=== PATIENT | male | born 1950 | race Caucasian/White ===

== ENCOUNTER 2017-03-05 09:13 | Emergency (ER) | payer OTHER ==
[~2017-03-05] VITALS: Ht 180.3 cm; Wt 90.7 kg
[2017-03-05 09:21] VITALS: BP 139/84
== END 2017-03-05 10:46 | disposition home or self-care (01) ==
LOC: ER 09:16
DX: S39.012A Strain of muscle, fascia and tendon of lower back, initial encounter (principal); S49.81XA Other specified injuries of right shoulder and upper arm, initial encounter; I10 Essential (primary) hypertension; E78.00 Pure hypercholesterolemia, unspecified; E11.9 Type 2 diabetes mellitus without complications; Z88.0 Allergy status to penicillin; Z95.2 Presence of prosthetic heart valve; V89.2XXA Person injured in unspecified motor-vehicle accident, traffic, initial encounter; Y93.89 Activity, other specified; Y92.413 State road as the place of occurrence of the external cause; Y99.8 Other external cause status
CPT/HCPCS: 72100; 73030; 99284; A4606; Z7610

== ENCOUNTER 2017-10-23 11:39 | Emergency (ER) | payer MEDICARE, OTHER ==
[~2017-10-23] VITALS: Ht 170.2 cm; Wt 86.2 kg
[2017-10-23 11:56] VITALS: BP 115/74
[2017-10-23] MEDS ORDERED: ONDANSETRON 4 MG TAB.RAPDIS ONE (12:23)
[2017-10-23] MEDS ORDERED: MORPHINE SULFATE INJ 4 MG/ML DISP.SYRIN ONE (12:23)
[2017-10-23] MEDS ORDERED: ONDANSETRON 4 MG TAB.RAPDIS SL ONE (12:30)
[2017-10-23] MEDS ORDERED: MORPHINE SULFATE INJ 2 MG/ML DISP.SYRIN IM ONE (12:30)
== END 2017-10-23 13:48 | disposition home or self-care (01) ==
LOC: ER 11:49
DX: M25.511 Pain in right shoulder (principal); I10 Essential (primary) hypertension; E78.00 Pure hypercholesterolemia, unspecified; E11.9 Type 2 diabetes mellitus without complications; I48.91 Unspecified atrial fibrillation; Z79.4 Long term (current) use of insulin; Z88.0 Allergy status to penicillin; Z95.2 Presence of prosthetic heart valve
CPT/HCPCS: 73030-TC; A4606; J2270; Q0162; Z7610

== ENCOUNTER 2021-07-08 01:02 | Inpatient (IN) | payer MEDICARE, OTHER ==
[~2021-07-08] VITALS: Ht 170.2 cm; Wt 86.2 kg
[2021-07-08] VITALS (8 sets, daily range): BP systolic 88–129; BP diastolic 47–98
--- NOTE | 2021-07-08 01:10 | NUR ---
BIB FOR C/O ABD 11/24 PAIN , N/V X 2 HOURS DENIED HEMATURIA OR DYSURIA, - DIARRHEA. 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 PT A/OX4. TOLERATING R/A AT 92% ON R/A. CONNECTED PT TO POX AND MONITOR.
[2021-07-08] MEDS ORDERED: HYDROMORPHONE 1 MG/1 ML DISP.SYRIN ONE ×3 (01:30→04:13)
[2021-07-08] MEDS ORDERED: ONDANSETRON HCL/PF 4 MG/2 ML VIAL IVP ONE (01:30)
[2021-07-08] MEDS ORDERED: ONDANSETRON HCL/PF 4 MG/2 ML VIAL ONE (01:30)
[2021-07-08] MEDS ORDERED: PANTOPRAZOLE 40 MG VIAL IV ONE (01:30)
[2021-07-08] MEDS ORDERED: HYDROMORPHONE INJ 2 MG/ML DISP.SYRIN IV ONE (01:30)
[2021-07-08] MEDS ORDERED: IV NS 0.9% 1,000 ML BAG IV ONE (01:30)
[2021-07-08] MEDS ORDERED: PANTOPRAZOLE 40 MG VIAL ONE (01:30)
[2021-07-08 01:43] LABS: BASOPHILS % (AUTO) 0.1 % (0.0-2.0); EOSINOPHILS % (AUTO) 0.1 % (0.0-6.0); HEMATOCRIT 50 % (39-51); HEMOGLOBIN 16.4 g/dL (13.5-17.5); LYMPHOCYTES # (AUTO) 0.6 K/uL (0.8-4.8); LYMPHOCYTES % (AUTO) 2.9 % (20.0-44.0); MEAN CORPUSCULAR HGB CONC 33 g/dl (31.0-36.0); MEAN CORPUSCULAR VOLUME 85 fL (80-96); MONOCYTES # (AUTO) 1.2 K/uL (0.1-1.30); MONOCYTES % (AUTO) 5.8 % (2.0-12.0); NEUTROPHILS # (AUTO) 18.6 K/uL (1.8-8.9); NEUTROPHILS % (AUTO) 91.1 % (43.0-81.0); PLATELET COUNT (AUTO) 213 K/uL (150-450); RED BLOOD CELL COUNT(AUTO) 5.94 MIL/uL (4.5-6.0); WHITE BLOOD COUNT (AUTO) 20.5 K/uL (4.3-11.0)
--- NOTE | 2021-07-08 01:45 | NUR ---
RAC #18G S/L; PATENT AND INTACT. BLOOD COLLECTED AND SENT TO LAB. IVF NS INFUSING ORDERED
--- NOTE | 2021-07-08 01:50 | NUR ---
CERTIFIED FINANCIAL PLAN[facility]
--- NOTE | 2021-07-08 02:28 | NUR ---
PT RETURNED TO ER BED [address] VIA [facility]ANNA[facility]ADI
[2021-07-08] MEDS ORDERED: HYDROMORPHONE 1 MG/1 ML DISP.SYRIN IV ONE ×2 (02:30→04:30)
[2021-07-08 02:41] LABS: ALBUMIN 3.8 g/dL (3.4-5.0); BILIRUBIN,DIRECT 0.5 mg/dL (0.0-0.2); CALCIUM, SERUM 8.9 mg/dL (8.5-10.1); POTASSIUM 3.9 mmol/L (3.5-5.1); TOTAL PROTEIN, SERUM 7.2 g/dL (6.4-8.2)
[2021-07-08 02:43] LABS: CREATININE 1.5 mg/dL (0.6-1.3)
[2021-07-08] MEDS ORDERED: METRONIDAZOLE 500MG/ NS 100ML 100 ML IV ONE (03:07)
[2021-07-08] MEDS ORDERED: CLINDAMYCIN 900 MG/6 ML VIAL ONE (03:07)
--- NOTE | 2021-07-08 03:20 | NUR ---
MRSA SWAB COLLECTED AND SENT TO LAB. PATIENT'S BELONGINGS LIST DONE.
[2021-07-08] MEDS ORDERED: METRONIDAZOLE 500MG/ NS 100ML 500 MG in PREMIX 1 EA IV SCH (03:30)
[2021-07-08] MEDS ORDERED: CLINDAMYCIN 600 MG in IV D5W 100 ML IV ONE (03:30)
--- NOTE | 2021-07-08 03:40 | NUR ---
COVID ANTIGEN SWAB COLLECTED AND SENT TO LAB
[2021-07-08] MEDS ORDERED: INSU100V3 IJ (03:48)
[2021-07-08] MEDS ORDERED: INSU100V7 SQ (03:48)
[2021-07-08] MEDS ORDERED: LISI10TA29 PO (03:48)
[2021-07-08] MEDS ORDERED: SEMA1PEN SQ (03:48)
[2021-07-08] MEDS ORDERED: INSU100V28 SUBCUT (03:48)
[2021-07-08] MEDS ORDERED: ROSU20TA2 PO (03:48)
[2021-07-08] MEDS ORDERED: METF-442 PO (03:48)
[2021-07-08] MEDS ORDERED: PANT40TA49 PO (03:48)
[2021-07-08] MEDS ORDERED: GLIP10TA11 PO (03:48)
[2021-07-08] MEDS ORDERED: HYDR10SY16 PO (03:48)
[2021-07-08] MEDS ORDERED: CYAN100096 PO (03:48)
[2021-07-08] MEDS ORDERED: WARF-68 PO (03:48)
--- NOTE | 2021-07-08 03:49 | NUR ---
US TECH AT PT'S BEDSIDE
--- NOTE | 2021-07-08 04:15 | NUR ---
DR WEST PAGED PER DR DUNN.
[2021-07-08] MEDS ORDERED: Z GUARD REMEDY 4 OZ OINT TP PRN (04:30)
[2021-07-08] MEDS ORDERED: IV NS 0.9% 1,000 ML IV PRN (04:30)
[2021-07-08] MEDS ORDERED: *INSULIN REGULAR(HUMULIN R)HUM 100 UNIT/ML VIAL SQ PRN ×2 (04:30→12:00)
[2021-07-08] MEDS ORDERED: MAG HYDROX/AL HYDROX/SIMETH 30 ML UDC PO PRN (04:30)
[2021-07-08] MEDS ORDERED: INSULIN REGULAR, HUMAN 100 UNIT/ML 3 ML VIAL SQ PRN ×2 (04:30→12:00)
[2021-07-08] MEDS ORDERED: DEXTROSE 50%-WATER 50 ML DISP.SYRIN IV PRN ×2 (04:30→12:00)
[2021-07-08] MEDS ORDERED: Medication Not On Formulary EA (Semaglutide (Ozempic) 0.5 MG) SQ SCH (04:30)
[2021-07-08] MEDS ORDERED: MAGNESIUM HYDROXIDE 30 ML UDC PO PRN (04:30)
--- NOTE | 2021-07-08 05:11 | NUR ---
CIPRO OUT OF STOCK IN ER, CALLED HOUSE SUP FOR CIPRO. AWAITING IV ATB
--- NOTE | 2021-07-08 05:19 | NUR ---
ASSIGNED TO 315-2
--- NOTE | 2021-07-08 05:28 | NUR ---
REPORT GIVEN TO AIDAN Farnsworth RN FOR ABIGAIL
[2021-07-08] MEDS ORDERED: CIPROFLOXACIN IV RTU 200 ML IV ONE (06:14)
[2021-07-08] MEDS: CIPROFLOXACIN IV RTU 400 MG in PREMIX 1 EA IV SCH ×2 (06:18→17:21)
[2021-07-08] MEDS ORDERED: PANTOPRAZOLE 40 MG TABLET.DR PO SCH (07:00)
--- NOTE | 2021-07-08 07:15 | NUR ---
PT TRANSFERRED TO 3 VIA HOSPITAL PROTOCOL. VSS.
--- NOTE | 2021-07-08 07:30 | NUR ---
RN NOTE- 71 Y/O MALE BIB EMERGENCY ROOM STAFF TO UNIT. ADMITTED R/O PANCREATITIS. ABD PAIN SEVERAL DAYS. PT ALLERGIC TO PCN, SKIN INTACT . AOX4, CALM INTERACTIVE . PAIN TO EPIGASTRIC AREA DECREASED W DILAUDID IVP. VS- BP- 129/98, HR- 102, RR- 18, T- 98.8, 02 SATS 98% ON 2LPM VIA NC. PIV 18G TO RAC, INFUSING NS AT 90/HR. ORDERS RECEIVED/ COMPLIED WITH. BED LOCKED., SIDE RAILS UP CALL LIGHT IN REACH. MONITOR / ASSIST
--- NOTE | 2021-07-08 07:30 | NUR ---
RN NOTE- PT BROUGHT TO ROOM, AMBULATORY TO BR, AOX4, CALM INTERACTIVE DENIES PAIN. MADE COMFORTABLE. BEGIN ADMISSION PROCESS
[2021-07-08] MEDS: BLOOD SUGAR DIAGNOSTIC 1 EACH STRIP VI SCH ×2 (07:54→12:00)
[2021-07-08] MEDS ORDERED: IV NS 0.9% 1,000 ML IV ONE (08:30)
--- NOTE | 2021-07-08 08:30 | NUR ---
RN NOTE- GAS LEAK TESTER FELIPE ORDERED NS BOLUS . ADMINISTERED
[2021-07-08] MEDS: ONDANSETRON HCL/PF 4 MG/2 ML VIAL IVP PRN ×3 (08:32→22:14)
[2021-07-08] MEDS: HYDROMORPHONE 1 MG/1 ML DISP.SYRIN IV PRN ×2 (08:33→15:53)
[2021-07-08] MEDS: LISINOPRIL (10MG) 10 MG TABLET PO SCH (08:55)
[2021-07-08] MEDS: PANTOPRAZOLE 40 MG VIAL IV SCH (08:56)
[2021-07-08] MEDS: CYANOCOBALAMIN 500 MCG TABLET PO SCH (08:56)
[2021-07-08] MEDS ORDERED: glipiZIDE 10 MG TABLET PO SCH (09:00)
[2021-07-08] MEDS: IV LR 1000 ML 1,000 ML IV PRN ×3 (09:44→22:26)
--- NOTE | 2021-07-08 09:45 | NUR ---
RN NOTE- TRUCK TRAILER MECHANIC FELIPE ORDERED HIDA SCAN. CYSTIC DUCT. CONSENT SIGNED AND QUESTIONARE COMPLETED.
[2021-07-08] MEDS: glipiZIDE 5 MG TABLET PO SCH ×2 (10:37→17:21)
--- NOTE | 2021-07-08 11:17 | NUR ---
RN NOTE- PT ACCUCHECK WAS 430 THIS AM. DIRECTOR DIVERSITY FELIPE ON UNIT. GAVE 10 U SSI PER ORDERS. RECHECKED 90 MINUTES LATER ACCU CHECK BS- 534. AM DOSE GLIPIZIDE 10 MG ADMINISTERED . CHANGING SSI TO AGGRESSIVE FROM MODERATE
[2021-07-08] MEDS: BLOOD SUGAR DIAGNOSTIC 1 EACH STRIP IN SCH ×8 (11:58→23:00)
--- NOTE | 2021-07-08 12:14 | NUR ---
RN NOTE- ACCU CHECK BS- 537 . AGGRESSIVE SSI ORDERED 20U. INSTRUCTIONAL TECHNOLOGY SPECIALIST FELIPE NOTIFIED AND APPROVED. RECHECK IN 30 MINUTES
--- NOTE | 2021-07-08 12:48 | NUR ---
RN NOTE- ACCU CHECK BS- 588, NEEMA WANG NOTIFIED
[2021-07-08] MEDS: METRONIDAZOLE 500MG/ NS 100ML 500 MG in PREMIX 1 EA IV SCH ×2 (13:00→20:51)
--- NOTE | 2021-07-08 13:30 | NUR ---
RN NOTE- CALLED LAB FOR STAT GLUCOSE RESULTS . TOLD THAT MACHINE NOT READING . PENDING STILL
--- NOTE | 2021-07-08 14:04 | NUR ---
RN NOTE- PT TO RADIOLOGY FOR HIDA SCAN
--- NOTE | 2021-07-08 15:26 | NUR ---
NM: HIDA SCAN WAS COMPLETED. TECH:RB.
[2021-07-08] MEDS ORDERED: WARFARIN SODIUM 2 MG TABLET PO SCH (17:00)
--- NOTE | 2021-07-08 17:07 | NUR ---
RN NOTE- CHICKEN HANDLER NOTICING SVT. NEW LEADS APPLIED. SAME RESULT. ORDERED STAT EKG
--- NOTE | 2021-07-08 17:36 | NUR ---
RN NOTE- ACCU CHECK GREATER THAN 600. COLLAR TRIMMER FELIPE NOTIFIED.
--- NOTE | 2021-07-08 18:25 | NUR ---
RN NOTE- SCREWHEAD STONER AND POLISHER FELIPE ORDERED TRANSFER OF PT TO ICU FOR BLOOD GLUCOSE CONTROL. TRANSFERRED PT TO ICU CARE, REPORT GIVEN IN PERSON TO ICU ARMY MANAGER GIL. ASSISTED W MAKING PT COMFORTABLE AND ALL ORDERS FOLLOWED THROUGH.
--- NOTE | 2021-07-08 18:30 | NUR ---
HUMAN INTELLIGENCE RECEIVED PT FROM ER VIA BED. ACCUCHECK DONE. CHEM 7 ORDERED, INSULIN DRIP TO START AFTER ORDER RECEIVED FROM ODELL WANG DNP. PT NPO FOR NOW.
[2021-07-08] MEDS: INSULIN REGULAR, HUMAN 100 UNIT in IV NS 0.9% 99 ML IV PRN ×4 (18:56→22:03)
--- NOTE | 2021-07-08 19:00 | NUR ---
RN NOTE RECEIVED PATIENT IN BED RESTING ALERT ORIENTED X3 ON 4L OXYGEN VIA NASAL CANNULA O2:90% IV SITE IS ON RIGHT AC INTACT PATENT ON LACTATED RINGER 250CC/HR,ON INSULIN DRIP 14 UNIT/HR ,SAFETY MEASURE IMPLEMENT BED IN LOW POSITION AND LOCKED,CALL LIGHT WITHIN REACH,HEAD OF THE BED ELEVATED CONTINUE TO MONITOR.
--- NOTE | 2021-07-08 19:30 | NUR ---
LEADLIGHTER CARE ENDORSED TO CARMEN. INSULIN DRIP STARTED AT 10 UNITS/HR ORDERED. AWAITING CHEM 7 RESULT. ACCUCHECK>600. REGULAR AND GLARGINE INSULINS FROM AGGRESSIVE SCALE STOPPED ORDERED.
[2021-07-08 19:35] LABS: CALCIUM, SERUM 7.5 mg/dL (8.5-10.1); CREATININE 3.1 mg/dL (0.6-1.3)
[2021-07-08 19:42] LABS: POTASSIUM 6.7 mmol/L (3.5-5.1)
--- NOTE | 2021-07-08 20:00 | NUR ---
INDUSTRIAL SERVICE TECHNICIAN NOTE RECEIVED CALL FROM LAB POTASSIUM 6.7 AND GLUCOSE 694 NOTIFIED GANG BORE OPERATOR RHONDA SUAREZ SHE SAID WE WILL RECHECK AT 22:00 NOTED AND CARRIED OUT.
--- NOTE | 2021-07-08 21:00 | NUR ---
RN NOTE CHECKED BLOOD SUGAR AT 2100 SHOWS HI AGAIN PER PROTOCOL STAT LAB GLUCOSE CHECK NOTED AND CARRIED OUT
[2021-07-08] MEDS: ATORVASTATIN 40 MG TABLET PO SCH (21:49)
[2021-07-08] MEDS ORDERED: INSULIN GLARGINE, 100 UNIT/ML CARTRIDGE SQ SCH (22:00)
[2021-07-08 23:59] LABS: CALCIUM, SERUM 7.7 mg/dL (8.5-10.1); CREATININE 3.6 mg/dL (0.6-1.3); POTASSIUM 5.2 mmol/L (3.5-5.1)
[2021-07-09] VITALS (20 sets, daily range): BP systolic 74–122; BP diastolic 24–86
[2021-07-09] MEDS ORDERED: Calcium Gluconate 1GM/10ML 4.65 MEQ in IV D5W 50 ML IV ONE ×2
[2021-07-09] MEDS ORDERED: SODIUM BICARBONATE SYR 50 MEQ/50 ML DISP.SYRIN IV ONE
[2021-07-09] MEDS: BLOOD SUGAR DIAGNOSTIC 1 EACH STRIP IN SCH ×13 (00:01→23:31)
[2021-07-09] MEDS ORDERED: Calcium Gluconate 0.465 MEQ/ML VIAL IV ONE (00:11)
[2021-07-09] MEDS: IV LR 1000 ML 1,000 ML IV PRN (02:12)
--- NOTE | 2021-07-09 03:30 | NUR ---
RN NOTE PATIENT NOT URINATED DURING THE SHIFT BLADDER SCAN DONE ABOUT 250CC URINE RETENTION NOTIFIED DANIELA ELLIS FACILITY SECURITY OFFICER SHE ORDERED MONITOR FOR NOW,NOTED AND CARRIED OUT.
--- NOTE | 2021-07-09 03:59 | NUR ---
RN NOTE REPORT GIVEN TO LEO MAY FOR CONTINUATION OF CARE.
--- NOTE | 2021-07-09 04:00 | NUR ---
RN NOTES RECEIVED REPORT FROM YADIRA MORALES.
[2021-07-09 04:16] LABS: CALCIUM, SERUM 7.8 mg/dL (8.5-10.1); CREATININE 0.9 mg/dL (0.6-1.3); POTASSIUM 4.1 mmol/L (3.5-5.1)
[2021-07-09] MEDS: CIPROFLOXACIN IV RTU 400 MG in PREMIX 1 EA IV SCH (04:56)
[2021-07-09] MEDS: METRONIDAZOLE 500MG/ NS 100ML 500 MG in PREMIX 1 EA IV SCH ×3 (05:21→20:06)
[2021-07-09 05:43] LABS: BASOPHILS % (AUTO) 0.1 % (0.0-2.0); EOSINOPHILS % (AUTO) 0.1 % (0.0-6.0); HEMATOCRIT 38 % (39-51); LYMPHOCYTES # (AUTO) 0.7 K/uL (0.8-4.8); LYMPHOCYTES % (AUTO) 8.1 % (20.0-44.0); MEAN CORPUSCULAR HGB CONC 33 g/dl (31.0-36.0); MEAN CORPUSCULAR VOLUME 85 fL (80-96); MONOCYTES # (AUTO) 0.6 K/uL (0.1-1.30); MONOCYTES % (AUTO) 6.3 % (2.0-12.0); NEUTROPHILS # (AUTO) 7.9 K/uL (1.8-8.9); NEUTROPHILS % (AUTO) 85.4 % (43.0-81.0); PLATELET COUNT (AUTO) 154 K/uL (150-450); RED BLOOD CELL COUNT(AUTO) 4.49 MIL/uL (4.5-6.0); WHITE BLOOD COUNT (AUTO) 9.2 K/uL (4.3-11.0)
[2021-07-09 05:48] LABS: HEMOGLOBIN 12.6 g/dL (13.5-17.5)
--- NOTE | 2021-07-09 06:20 | NUR ---
RN NOTES NOTIFIED SUPERVISOR INSPECTION RHONDA SUAREZ, REGARDING LATEST ANION GAP-8, LATEST BS- 271, WITH NEW ORDER DISCONTINUE INSULIN DRIP, IVF LR 1L 250ML/HR, START D5NS 1L @ 100CC/HR AND BLOOD SUGAR Q2H X 2 THEN BLOOD SUGAR Q4H NOTED AND CARRIED OUT
[2021-07-09] MEDS ORDERED: IV D5/ 0.9% NACL 1,000 ML IV PRN (06:30)
[2021-07-09] MEDS ORDERED: IV NS 0.9% 250 ML IV PRN (07:00)
[2021-07-09] MEDS ORDERED: INSULIN REGULAR, HUMAN 100 UNIT/ML 3 ML VIAL SQ PRN ×3 (07:00→14:00)
--- NOTE | 2021-07-09 07:20 | NUR ---
RN CLOSING NOTES NO SIGNIFICANT CHANGES THROUGH OUT THE SHIFT, NO S/S OF DISTRESS NOTED, NO SOB NOTED, REMAIN 0N NASAL CANULA @ 4LPM SATING AT 92%, STARTED WITH D5NS 1L @ 100ML/HR. ALL DUE MEDS GIVEN ORDERED. ALL SAFETY MEASURE PROVIDED. BED ON LOWEST POSITION, LOCKED. ENDORSED TO NEXT SHIFT
--- NOTE | 2021-07-09 07:30 | NUR ---
OPENING NOTE: REPORT RECEIVED FROM RAGINI MAY AND IKER RN. INSULIN GTT STOPPED ON PREVIOUS SHIFT PER REPORT. ACCUCHECKS ORDERS Q2X2 STARTING AT 0800, THEN Q4H ON AGGRESSIVE SCALE. PT APPEARS TO BE ALERT OX3, ALTHOUGH SLIGHTLY FORGETFUL. PT CONTINUES TO BE NPO. PT CHECKED ON HOURLY AND PRN BY NURSING STAFF.
[2021-07-09] MEDS ORDERED: DEXTROSE 50%-WATER 50 ML DISP.SYRIN IV PRN ×4 (08:00→14:00)
[2021-07-09] MEDS: INSULIN REGULAR, HUMAN 100 UNIT/ML 3 ML VIAL SQ PRN ×5 (08:23→23:32)
[2021-07-09] MEDS ORDERED: MIDODRINE HCL (5MG) 5 MG TABLET PO PRN (08:30)
[2021-07-09 09:50] LABS: ALBUMIN 2.2 g/dL (3.4-5.0); BILIRUBIN,DIRECT 0.2 mg/dL (0.0-0.2); BILIRUBIN,TOTAL 0.7 mg/dL (0.2-1.0)
[2021-07-09 09:51] LABS: CALCIUM, SERUM 7.7 mg/dL (8.5-10.1); POTASSIUM 4.7 mmol/L (3.5-5.1); TOTAL PROTEIN, SERUM 5.2 g/dL (6.4-8.2)
[2021-07-09 09:52] LABS: CREATININE 3.8 mg/dL (0.6-1.3); PHOSPHORUS 3.2 mg/dL (2.5-4.9)
[2021-07-09] MEDS: ENOXAPARIN SODIUM 80 MG/0.8 ML DISP.SYRIN SQ SCH ×2 (09:54→20:36)
[2021-07-09] MEDS: PANTOPRAZOLE 40 MG VIAL IV SCH (09:54)
[2021-07-09] MEDS: CYANOCOBALAMIN 500 MCG TABLET PO SCH (09:55)
[2021-07-09] MEDS: LISINOPRIL (10MG) 10 MG TABLET PO SCH (09:55)
[2021-07-09] MEDS: glipiZIDE 5 MG TABLET PO SCH ×2 (09:55→15:30)
[2021-07-09] MEDS ORDERED: IV LR 1000 ML 1,000 ML IV PRN (10:00)
[2021-07-09] MEDS: ACETAMINOPHEN 325 MG TABLET PO PRN (10:01)
[2021-07-09] MEDS: ONDANSETRON HCL/PF 4 MG/2 ML VIAL IVP PRN (10:15)
[2021-07-09] MEDS ORDERED: Magnesium 1GM/D5W 100ML PREMIX PIGGYBACK IV ONE ×2 (10:30→12:30)
[2021-07-09] MEDS ORDERED: MGSO4/D5W 100 ML IV SCH (11:00)
[2021-07-09] MEDS: INSULIN GLARGINE, 100 UNIT/ML CARTRIDGE SQ SCH ×3 (11:30→20:59)
[2021-07-09] MEDS ORDERED: *INSULIN REGULAR(HUMULIN R)HUM 100 UNIT/ML VIAL SQ PRN (12:00)
[2021-07-09] MEDS ORDERED: BLOOD SUGAR DIAGNOSTIC 1 EACH STRIP IN SCH ×2 (12:00→14:00)
[2021-07-09] MEDS: IV NS 0.9% 1,000 ML IV PRN ×2 (15:30→20:04)
--- NOTE | 2021-07-09 16:24 | NUR ---
TELEPHONE REPORT GIVEN TO DOMINICK MAY FOR PT TRANSFER TO ROOM 316-2 PT TRANSFERRED VIA BED TO ROOM 316-2, ACCOMPANIED BY PATIENTS , ALL BELONGINGS BY RN. HANDOFF REPORT GIVEN TO DOMINICK MAY.
[2021-07-09 16:28] LABS: BILIRUBIN,URINE MODERATE (NEGATIVE); COLOR,URINE DARK YELLOW (YELLOW); LEUKOCYTE ESTERASE ,URINE NEGATIVE (NEGATIVE); NITRITE, URINE NEGATIVE (NEGATIVE); PROTEIN,URINE 30 mg/dl (NEGATIVE); UGLUCOSE NEGATIVE (NEGATIVE); UROBILINOGEN,URINE 0.2 EU/dL (0.2)
[2021-07-09 16:40] LABS: BACTERIA,URINE Few /HPF (None Seen); RBC,URINE 81-100 /HPF (0-2); SQUAMOUS EPITHELIAL CELL,UR None Seen /HPF (None Seen)
--- NOTE | 2021-07-09 16:45 | NUR ---
RN NOTE PATIENT WAS TRANSFER TO UNIT FROM ICU VIA GURNEY. PATIENT A/OX4. NO S/S OF PAIN NOTED AT THIS TIME. ON 5L OXYGEN, NO DISTRESS OR SHORTNESS OF BREATH NOTED. IV RIGHT HAND #20G AND LFA, INTACT PATENT AND FLUSHING WELL. PATIENT HAVE A LANDEROS CATHETER IN PLACE, DRAINING WELL.PATIENT ORIENTED TO ROOM SET UP AND SHOWED PATIENT HOW TO USE CALL LIGHT. FALL AND SAFETY MEASURES IN PLACE, BED ALARM ON, BED IN LOW AND LOCK POSITION, CALL LIGHT AND TABLE WITHIN EASY REACH, SIDE RAILS UP X2. WILL CONTINUE TO MONITOR.
[2021-07-09 16:59] LABS: CALCIUM, SERUM 7.6 mg/dL (8.5-10.1); CREATININE 3.7 mg/dL (0.6-1.3)
[2021-07-09 17:01] LABS: ALBUMIN 2.1 g/dL (3.4-5.0)
[2021-07-09 17:46] LABS: EOSINOPHIL,URINE None Seen
[2021-07-09 17:51] LABS: BILIRUBIN,TOTAL 0.7 mg/dL (0.2-1.0); TOTAL PROTEIN, SERUM 5.1 g/dL (6.4-8.2)
[2021-07-09 18:47] LABS: CREATININE, URINE 293.6 MG/DL (30.0-125.0)
--- NOTE | 2021-07-09 19:27 | NUR ---
RN CLOSING NOTE PATIENT A/OX4. NO S/S OF PAIN NOTED AT THIS TIME. ON 5L OXYGEN, NO DISTRESS OR SHORTNESS OF BREATH NOTED. IV RIGHT HAND #20G AND LFA, INTACT PATENT AND FLUSHING WELL. PATIENT HAVE A LANDEROS CATHETER IN PLACE, DRAINING WELL. PATIENT HAVE EXTERNAL HEADER UP SINUS TACHYCARDIAC, HR 122. FALL AND SAFETY MEASURES IN PLACE, BED ALARM ON, BED IN LOW AND LOCK POSITION, CALL LIGHT AND TABLE WITHIN EASY REACH, SIDE RAILS UP X2. WILL ENDORSE TO MAKING DEPARTMENT PREPARER.
--- NOTE | 2021-07-09 19:30 | NUR ---
MS RN OPENING NOTE RECEIVED PATIENT AWAKE IN BED. A/OX4. ON 5L O2 VIS NC, NO SOB OR S/S OF RESPIRATORY DISTRESS. IV ACCESS RIGHT HAND 20 GAUGE AND LFA 20 GAUGE, RUNNING NS @ 250 ML/HR. LANDEROS CATHETER IN PLACE, DRAINING WELL. SAFETY PRECAUTIONS IN PLACE. BED IN LOWEST LOCKED POSITION, HOB ELEVATED, SIDE RAILS UP X2, AND CALL LIGHT AND TABLE WITHIN REACH. WILL CONTINUE WITH PLAN OF CARE.
[2021-07-09] MEDS: ATORVASTATIN 40 MG TABLET PO SCH (21:00)
[2021-07-10] VITALS: BP 126/78
[2021-07-10] MEDS: IV NS 0.9% 1,000 ML IV PRN (01:03)
[2021-07-10 04:00] VITALS: BP 113/56
[2021-07-10] MEDS: METRONIDAZOLE 500MG/ NS 100ML 500 MG in PREMIX 1 EA IV SCH ×3 (04:18→20:49)
[2021-07-10] MEDS: BLOOD SUGAR DIAGNOSTIC 1 EACH STRIP IN SCH ×4 (05:06→23:52)
[2021-07-10] MEDS: INSULIN REGULAR, HUMAN 100 UNIT/ML 3 ML VIAL SQ PRN ×4 (05:07→23:56)
[2021-07-10] MEDS: CIPROFLOXACIN IV RTU 400 MG in PREMIX 1 EA IV SCH (05:36)
--- NOTE | 2021-07-10 06:40 | NUR ---
MS RN CLOSING NOTE PATIENT AWAKE IN BED. A/OX4. ON 5L O2 VIS NC, NO SOB OR S/S OF RESPIRATORY DISTRESS. IV ACCESS RIGHT HAND 20 GAUGE AND LFA 20 GAUGE, RUNNING NS @ 250 ML/HR. LANDEROS CATHETER IN PLACE, DRAINED 800 ML. ALL NEEDS MET AT THIS TIME. SAFETY PRECAUTIONS IN PLACE AT ALL TIMES. BED IN LOWEST LOCKED POSITION, HOB ELEVATED, SIDE RAILS UP X2, AND CALL LIGHT AND TABLE WITHIN REACH. WILL ENDORSE TO ONCOMING NURSE FOR ABIGAIL.
[2021-07-10 07:27] LABS: ALBUMIN 1.9 g/dL (3.4-5.0); BILIRUBIN,TOTAL 0.7 mg/dL (0.2-1.0); CALCIUM, SERUM 7.3 mg/dL (8.5-10.1); CREATININE 2.3 mg/dL (0.6-1.3); POTASSIUM 4.6 mmol/L (3.5-5.1)
--- NOTE | 2021-07-10 07:30 | NUR ---
MS RN OPENING NOTES RECEIVED PATIENT AWAKE IN BED. A/OX4. EQUAL CHEST EXPANSION ON 5L O2 VIA NC, WITH NO S/SX OF RESPIRATORY DISTRESS NOTED. RIGHT HAND G#20 AND LFA G#20, RUNNING NS @ 250 ML/HR. LANDEROS CATHETER INTACT AND PATENT. PATIENT KEPT NPO PER MD ORDER. SAFETY PRECAUTIONS IN PLACE: BED IN LOWEST LOCKED POSITION, HOB ELEVATED, SIDE RAILS UP X2, AND CALL LIGHT WITHIN REACH. WILL CONTINUE TO MONITOR PATIENT
[2021-07-10 08:00] VITALS: BP 131/82
--- NOTE | 2021-07-10 08:32 | NUR ---
RN NOTES PATIENT STARTED ON CLEAR LIQUIDS PER DR. CHARLINE HOLLIS ORDER. WILL MONITOR PATIENT
[2021-07-10] MEDS: CYANOCOBALAMIN 500 MCG TABLET PO SCH (09:03)
[2021-07-10] MEDS: LISINOPRIL (10MG) 10 MG TABLET PO SCH (09:03)
[2021-07-10] MEDS: glipiZIDE 5 MG TABLET PO SCH (09:03)
[2021-07-10] MEDS: ENOXAPARIN SODIUM 80 MG/0.8 ML DISP.SYRIN SQ SCH ×2 (09:04→21:09)
[2021-07-10] MEDS: PANTOPRAZOLE 40 MG VIAL IV SCH (09:04)
[2021-07-10] MEDS: INSULIN GLARGINE, 100 UNIT/ML CARTRIDGE SQ SCH ×2 (10:05→21:08)
[2021-07-10] MEDS: IV NS 0.9% 1,000 ML IV SCH ×2 (10:09→18:39)
[2021-07-10] MEDS: POLYVINYL ALCOHOL 15 ML BOTTLE EACHEYE SCH ×2 (10:24→18:39)
--- NOTE | 2021-07-10 12:00 | NUR ---
RN NOTES PATIENT TOLERATED CLEAR LIQUIDS, ADVANCED TO FULL LIQUIDS PER MD ORDER. WILL CONTINUE TO MONITOR.
[2021-07-10 16:00] VITALS: BP 135/78
--- NOTE | 2021-07-10 18:45 | NUR ---
MS RN CLOSING NOTES PATIENT IN BED AWAKE, A/OX4, AT TIMES FORGETFUL. CONTINUED ON 5L O2 VIA NC, WITH NO S/SX OF RESPIRATORY DISTRESS NOTED. RIGHT HAND G#20 INTACT WITH NS RUNNING @ 250 ML/HR. LANDEROS CATHETER INTACT AND PATENT WITH 1100ML YELLOW URINE NOTED. PATIENT IS CURRENTLY ON FULL LIQUIDS PER MD ORDER. DIET IS OKAY TO ADVANCE TOLERATED. ALL ORDERS CARRIED OUT AND NEEDS MET. SAFETY PRECAUTIONS IN PLACE: BED IN LOWEST LOCKED POSITION, HOB ELEVATED, SIDE RAILS UP X2, AND CALL LIGHT WITHIN REACH. WILL ENDORSE TO THE TEA TREE FARMER NURSE FOR ABIGAIL
--- NOTE | 2021-07-10 19:44 | NUR ---
RN OPENING NOTES RECEIVED PATIENT IN BED. AWAKE, A/OX4 AND VERBALLY RESPONSIVE. ON 5L O2 VIA NC AND PT TOLERATED WELL. IV ACCESS ON RIGHT HAND G#20 INTACT AND PATENT. RUNNING NS @ 250 ML/HR. NO C/O PAIN OR DISCOMFORT. NO ACUTE DISTRESS. LANDEROS CATHETER INTACT AND PATENT WITH TEA-COLOR URINE. ALL SAFETY PRECAUTIONS IN PLACE. BED IN LOWEST POSITION AND LOCKED, HOB ELEVATED, SIDE RAILS UP X2, PLACE CALL LIGHT WITHIN REACH. WILL CONTINUE TO MONITOR
[2021-07-10 20:00] VITALS: BP 137/78
[2021-07-10] MEDS: ATORVASTATIN 40 MG TABLET PO SCH (21:44)
--- NOTE | 2021-07-11 00:04 | NUR ---
RN NOTES: BLOOD SUGAR 190, 4 UNITS OF REGULAR INSULIN GIVEN PER SLIDING SCALE. NO S/S OF HYPER/HYPOGLYCEMIA. WILL CONTINUE TO MONITOR
[2021-07-11] MEDS: POLYVINYL ALCOHOL 15 ML BOTTLE EACHEYE SCH ×3 (01:13→18:12)
[2021-07-11] MEDS: METRONIDAZOLE 500MG/ NS 100ML 500 MG in PREMIX 1 EA IV SCH (04:46)
[2021-07-11] MEDS: IV NS 0.9% 1,000 ML IV SCH ×2 (04:47→15:37)
[2021-07-11] MEDS: BLOOD SUGAR DIAGNOSTIC 1 EACH STRIP IN SCH ×3 (05:38→18:14)
[2021-07-11] MEDS: INSULIN REGULAR, HUMAN 100 UNIT/ML 3 ML VIAL SQ PRN ×4 (05:41→21:08)
[2021-07-11] MEDS: CIPROFLOXACIN IV RTU 400 MG in PREMIX 1 EA IV SCH (06:01)
[2021-07-11 06:16] LABS: BASOPHILS % (AUTO) 0.1 % (0.0-2.0); EOSINOPHILS % (AUTO) 0.3 % (0.0-6.0); HEMATOCRIT 39 % (39-51); HEMOGLOBIN 12.9 g/dL (13.5-17.5); LYMPHOCYTES # (AUTO) 0.6 K/uL (0.8-4.8); LYMPHOCYTES % (AUTO) 6.8 % (20.0-44.0); MEAN CORPUSCULAR HGB CONC 33 g/dl (31.0-36.0); MEAN CORPUSCULAR VOLUME 85 fL (80-96); MONOCYTES # (AUTO) 0.4 K/uL (0.1-1.30); MONOCYTES % (AUTO) 4.8 % (2.0-12.0); PLATELET COUNT (AUTO) 132 K/uL (150-450); RED BLOOD CELL COUNT(AUTO) 4.61 MIL/uL (4.5-6.0); WHITE BLOOD COUNT (AUTO) 9.1 K/uL (4.3-11.0)
--- NOTE | 2021-07-11 06:22 | NUR ---
RN CLOSING NOTES PATIENT IN BED. AWAKE, A/OX4 AND VERBALLY RESPONSIVE. ON 5L O2 VIA NC, O2 SAT 93% AND PT TOLERATED WELL. IV ACCESS ON RIGHT HAND G#20 INTACT AND PATENT. RUNNING NS @ 100ML/HR. NO C/O PAIN OR DISCOMFORT. NO ACUTE DISTRESS. LANDEROS CATHETER INTACT AND PATENT WITH TEA-COLOR URINE. NO SEDIMENTS NOTED. ALL DUE MEDS GIVEN ORDERED. ALL SAFETY PRECAUTIONS IN PLACE. BED IN LOWEST POSITION AND LOCKED, HOB ELEVATED, SIDE RAILS UP X2, PLACE CALL LIGHT WITHIN REACH. WILL ENDORSE TO MORNING SHIFT NURSE
[2021-07-11 07:08] LABS: ALBUMIN 1.9 g/dL (3.4-5.0); BILIRUBIN,DIRECT 0.2 mg/dL (0.0-0.2); BILIRUBIN,TOTAL 0.6 mg/dL (0.2-1.0); CALCIUM, SERUM 7.4 mg/dL (8.5-10.1); CREATININE 1.4 mg/dL (0.6-1.3); MAGNESIUM 1.5 mg/dL (1.8-2.4); PHOSPHORUS 2.1 mg/dL (2.5-4.9); POTASSIUM 4.2 mmol/L (3.5-5.1); TOTAL PROTEIN, SERUM 4.8 g/dL (6.4-8.2)
[2021-07-11 08:00] VITALS: BP 143/76
[2021-07-11] MEDS ORDERED: Sodium Phosphate 30 MMOL in IV NS 0.9% 250 ML IV SCH (08:00)
--- NOTE | 2021-07-11 08:00 | NUR ---
MS RN OPENING NOTE Patient in bed, awake. A/O x 4, able to make needs known. On O2 at 5 LPM via NC, breathing evenly and unlabored. No SOB or s/s of distress noted. IV access on Right hand #20G infusing NS at 100 cc/hr. Fernandez catheter in place draining to a yellow colored urine. Safety precautions in place: bed in low, locked position; siderails up x 2; call light within reach. Will continue to monitor.
[2021-07-11] MEDS: Magnesium 1GM/D5W 100ML PREMIX 100 ML IV SCH ×2 (09:12→10:17)
[2021-07-11] MEDS: LISINOPRIL (10MG) 10 MG TABLET PO SCH (09:13)
[2021-07-11] MEDS: PANTOPRAZOLE 40 MG VIAL IV SCH (09:13)
[2021-07-11] MEDS: CYANOCOBALAMIN 500 MCG TABLET PO SCH (09:13)
[2021-07-11] MEDS: ENOXAPARIN SODIUM 80 MG/0.8 ML DISP.SYRIN SQ SCH ×2 (09:25→21:09)
[2021-07-11] MEDS: INSULIN GLARGINE, 100 UNIT/ML CARTRIDGE SQ SCH ×2 (09:48→21:06)
[2021-07-11] MEDS: HYDROMORPHONE 1 MG/1 ML DISP.SYRIN IV PRN (15:15)
[2021-07-11 16:00] VITALS: BP 135/78
[2021-07-11] MEDS ORDERED: WARFARIN SODIUM 2 MG TABLET PO SCH (17:00)
--- NOTE | 2021-07-11 19:40 | NUR ---
MS RN CLOSING NOTE Patient in bed, resting. A/O x 4, able to make needs known. On O2 at 5 LPM via NC, breathing evenly and unlabored. No SOB or s/s of distress noted. IV access on Right hand #20G infusing NS at 100 cc/hr. Fernandez catheter in place draining to a yellow colored urine with an output of 1400cc. Due meds given. Safety precautions in place: bed in low, locked position; siderails up x 2; call light within reach. Will endorse to operations supervisor 2nd shift nurse for ABIGAIL.
--- NOTE | 2021-07-11 19:45 | NUR ---
MS RN OPENING NOTES RECEIVED REPORT AT PATIENTS BEDSIDE. PATIENT IS AWAKE AND COMMUNICATIVE, A&OX4. O2 IN PLACE VIA NC @ 5LPM. DYSPNEA ON EXERTION. IV ACCESS ON RIGHT HAND G#20 INTACT AND PATENT, RUNNING NS @ 100ML/HR -- NO S/SX OF INFILTRATION, DRESSING C/D/I. DENIES PAIN. REQUESTING AN ORAL SLEEPING AID THIS EVENING BEFORE BED. DEMONSTRATES NAD AT THIS TIME. F/C IN PLACE DRAINING CLEAR, TEA-COLORED URINE. SAFETY PRECAUTIONS IN PLACE. BED IN LOW, LOCKED POSITION, HOB ELEVATED TO SEMI-GO'S POSITION, SIDE RAILS UP X2. PATIENT DEMONSTRATES ABILITY TO USE CALL LIGHT AND VERBALIZE NEEDS EFFECTIVELY. CALL LIGHT AND FREQUENTLY USED ITEMS WITHIN REACH.
[2021-07-11 20:00] VITALS: BP 145/79
[2021-07-11] MEDS: ACETAMINOPHEN 325 MG TABLET PO PRN (21:10)
[2021-07-11] MEDS: ZOLPIDEM TARTRATE 5 MG TABLET PO PRN (21:11)
[2021-07-11] MEDS: ATORVASTATIN 40 MG TABLET PO SCH (21:13)
--- NOTE | 2021-07-11 22:50 | NUR ---
TEMP 100.6. TYLENOL ADMINISTERED PER PRN ORDER. COOLING MEASURES IMPLEMENTED.
[2021-07-12] MEDS: BLOOD SUGAR DIAGNOSTIC 1 EACH STRIP IN SCH ×4 (00:17→18:22)
[2021-07-12] MEDS: POLYVINYL ALCOHOL 15 ML BOTTLE EACHEYE SCH ×3 (01:44→18:25)
[2021-07-12] MEDS: IV NS 0.9% 1,000 ML IV SCH (02:05)
--- NOTE | 2021-07-12 03:18 | NUR ---
TEMP RECHECK 98.4 ORAL.
[2021-07-12] MEDS: INSULIN REGULAR, HUMAN 100 UNIT/ML 3 ML VIAL SQ PRN ×3 (05:15→18:20)
--- NOTE | 2021-07-12 06:10 | NUR ---
MS RN CLOSING NOTES PATIENT IN BED, EYES CLOSED, RR EVEN AND UNLABORED. O2 IN PLACE VIA NC @ 5LPM. PATIENT DESATS TO 87% ON RA. DYSPNEA WITH MINIMAL EXERTION. PATIENT STATES HE DOES NOT WEAR O2 AT HOME AND DOES NOT EXPERIENCE SHORTNESS OF BREATH AT HOME. LUNG SOUNDS: RLL EXPIRATORY WHEEZES, LLL DIMINISHED. ENCOURAGED DEEP BREATHING AND COUGHING EXERCISES. PATIENT RETURNS DEMONSTRATION. IV ACCESS ON RIGHT HAND G#20 INTACT AND PATENT, RUNNING NS @ 100ML/HR -- NO S/SX OF INFILTRATION, DRESSING C/D/I. DENIES PAIN. PATIENT GIVEN AMBIEN PER PRN ORDER WITH EFFECTIVE RESULTS ON SHIFT. DEMONSTRATES NAD AT THIS TIME. F/C IN PLACE DRAINING CLEAR, TEA-COLORED URINE. SAFETY PRECAUTIONS IN PLACE. BED IN LOW, LOCKED POSITION, HOB ELEVATED TO SEMI-GO'S POSITION, SIDE RAILS UP X2. PATIENT DEMONSTRATES ABILITY TO USE CALL LIGHT AND VERBALIZE NEEDS EFFECTIVELY. CALL LIGHT AND FREQUENTLY USED ITEMS WITHIN REACH.
[2021-07-12] MEDS: PANTOPRAZOLE 40 MG TABLET.DR PO SCH (06:32)
[2021-07-12 06:57] LABS: ALBUMIN 1.8 g/dL (3.4-5.0); BILIRUBIN,TOTAL 0.5 mg/dL (0.2-1.0); CALCIUM, SERUM 7.5 mg/dL (8.5-10.1); CREATININE 1.1 mg/dL (0.6-1.3); POTASSIUM 3.9 mmol/L (3.5-5.1); TOTAL PROTEIN, SERUM 4.9 g/dL (6.4-8.2)
[2021-07-12 08:16] VITALS: BP 148/95
[2021-07-12] MEDS: LEVOFLOXACIN 500 MG /D5W 100ML 500 MG in PREMIX 1 EA IV SCH (09:27)
[2021-07-12] MEDS: LISINOPRIL (10MG) 10 MG TABLET PO SCH (09:28)
[2021-07-12] MEDS: CYANOCOBALAMIN 500 MCG TABLET PO SCH (09:29)
[2021-07-12] MEDS: ENOXAPARIN SODIUM 80 MG/0.8 ML DISP.SYRIN SQ SCH (09:30)
[2021-07-12] MEDS ORDERED: FUROSEMIDE 40 MG/4 ML VIAL IV ONE (09:30)
[2021-07-12] MEDS: INSULIN GLARGINE, 100 UNIT/ML CARTRIDGE SQ SCH ×2 (09:51→21:17)
[2021-07-12 16:34] VITALS: BP 131/85
[2021-07-12] MEDS: WARFARIN SODIUM 2 MG TABLET PO SCH (18:22)
--- NOTE | 2021-07-12 19:48 | NUR ---
MS RN OPENING NOTE RECEIVED PATIENT IN BED A/OX4. NO S/S OF APPARENT DISTRESS. DENIES PAIN AT THIS TIME. LANDEROS CATH DRAINING YELLOW URINE WITH SEDIMENTS. NO FLUIDS RUNNING AT THIS TIME. SAFETY IN PLACE. WILL CONTINUE WITH PLAN OF CARE FOR PATIENT.
--- NOTE | 2021-07-12 21:00 | NUR ---
MS RN NOTE BLOOD SUGAR 201. INSULIN LANTUS 15 UNITS GIVEN.
[2021-07-12] MEDS: ZOLPIDEM TARTRATE 5 MG TABLET PO PRN (21:34)
[2021-07-12] MEDS: ATORVASTATIN 40 MG TABLET PO SCH (22:14)
[2021-07-13] MEDS: INSULIN REGULAR, HUMAN 100 UNIT/ML 3 ML VIAL SQ PRN ×5 (00:06→21:53)
[2021-07-13] MEDS: BLOOD SUGAR DIAGNOSTIC 1 EACH STRIP IN SCH ×4 (00:08→17:28)
[2021-07-13] MEDS: POLYVINYL ALCOHOL 15 ML BOTTLE EACHEYE SCH ×3 (01:50→17:27)
[2021-07-13] MEDS: HYDROMORPHONE 1 MG/1 ML DISP.SYRIN IV PRN (06:11)
[2021-07-13 07:12] LABS: CALCIUM, SERUM 7.8 mg/dL (8.5-10.1); POTASSIUM 3.8 mmol/L (3.5-5.1)
[2021-07-13 07:17] LABS: ALBUMIN 1.8 g/dL (3.4-5.0); BILIRUBIN,TOTAL 0.6 mg/dL (0.2-1.0); TOTAL PROTEIN, SERUM 5.2 g/dL (6.4-8.2)
--- NOTE | 2021-07-13 07:18 | NUR ---
MS RN CLOSING PATIENT IN BED AWAKE, A/OX3. NO S/S OF APPARENT DISTRESS-- HOB ELEVATED ON 5LPM OF O2 VIA NC. PAIN MANAGED WITH MEDICATION. NO FLUIDS RUNNING AT THIS TIME. LANDEROS CATHETER DRAINING TEA COLORED URINE. UO OF 1600. ALL NEEDS ATTENDED. ALL SCHEDULED MEDICATIONS ADMINISTERED. SAFETY IN PLACE. NO SIGNIFICANT CHANGE SINCE LAST ENDORSEMENT. REPORT GIVEN TO PINO FOR CONTINUITY OF CARE.
--- NOTE | 2021-07-13 07:30 | NUR ---
MS RN OPENING NOTES RECEIVED PATIENT IN BED AWAKE, A/OX4.ON O2 AT 5LPM VIA NASAL CANNULA TOLERATING WELL. NO SOB NOTED. NOT IN DISTRESS. WITH NO COMPLAINTS OF PAIN OR DISCOMFORT AT THIS TIME. LANDEROS CATHETER DRAINING TEA COLORED URINE. SAFETY MEASURES IN PLACED. CALL LIGHT WITHIN REACH. BED ON LOWEST LOCKED POSITION, SIDE RAILS UP X2. WILL CONTINUE TO MONITOR.
[2021-07-13 08:00] VITALS: BP 128/86
[2021-07-13] MEDS: PANTOPRAZOLE 40 MG TABLET.DR PO SCH (08:45)
[2021-07-13] MEDS: CYANOCOBALAMIN 500 MCG TABLET PO SCH (08:48)
[2021-07-13] MEDS: LISINOPRIL (10MG) 10 MG TABLET PO SCH (08:49)
[2021-07-13] MEDS: LEVOFLOXACIN 500 MG /D5W 100ML 500 MG in PREMIX 1 EA IV SCH (08:54)
[2021-07-13] MEDS: INSULIN GLARGINE, 100 UNIT/ML CARTRIDGE SQ SCH ×2 (09:06→21:51)
[2021-07-13] MEDS ORDERED: FUROSEMIDE 20 MG/2 ML VIAL IV ONE (12:00)
[2021-07-13] MEDS ORDERED: Medication Not On Formulary EA (Metformin Hcl 1,000 MG) PO SCH (17:00)
[2021-07-13] MEDS: WARFARIN SODIUM 2 MG TABLET PO SCH (17:27)
[2021-07-13] MEDS: METFORMIN 500 MG TABLET PO SCH (17:27)
--- NOTE | 2021-07-13 19:25 | NUR ---
MS RN OPENING NOTES: RECEIVED REPORT AT PATIENT'S BEDSIDE. PATIENT'S EYES CLOSED, RR EVEN AND UNLABORED. NO DYSPNEA OBSERVED/REPORTED. PATIENT IN NAD AND STABLE, EASILY AROUSED BY VOICE COMMAND. COMMUNICATIVE. SPO2 96% ON 2L O2 VIA NC. LUNG SOUNDS WITH FINE CRACKLES TO BLL. DEMONSTRATED DEEP BREATHING AND COUGHING TECHNIQUE. PATIENT RETURNS DEMONSTRATION. PATIENT C/O LL ABDOMINAL CRAMPING/PAIN 6-12/25 WHICH HAS BEEN INTERMITTENT SINCE ADMIT. SAFETY PRECAUTIONS IN PLACE. BED IN LOW, LOCKED POSITION, SIDE RAILS UP X2, HOB ELEVATED TO SEMI-GO'S POSITION. PATIENT DEMONSTRATES ABILITY TO USE CALL LIGHT AND VERBALIZE NEEDS EFFECTIVELY. CALL LIGHT AND FREQUENTLY USED ITEMS WITHIN REACH.
--- NOTE | 2021-07-13 19:30 | NUR ---
MS RN CLOSING NOTES PATIENT IN BED RESTING AND A/OX4. ON O2 AT 2LPM VIA NASAL CANNULA TOLERATING WELL. NO SOB NOTED. NOT IN DISTRESS. WITH NO COMPLAINTS OF PAIN OR DISCOMFORT AT THIS TIME. REMOVED LANDEROS CATHETER PER PATIENT AND 'S REQUEST WITH DOCTOR CHARLINE'S PERMISSION AND CHARGE NURSE IS AWARE. DUE MEDS GIVEN. SAFETY MEASURES IN PLACED. CALL LIGHT WITHIN REACH. BED ON LOWEST LOCKED POSITION, SIDE RAILS UP X2. WILL ENDORSE TO NEXT SHIFT FOR ABIGAIL.
[2021-07-13 20:00] VITALS: BP 125/70
[2021-07-13] MEDS: ACETAMINOPHEN 325 MG TABLET PO PRN (20:51)
[2021-07-13] MEDS: ATORVASTATIN 40 MG TABLET PO SCH (21:08)
[2021-07-13] MEDS: ZOLPIDEM TARTRATE 5 MG TABLET PO PRN (21:08)
[2021-07-14] MEDS: BLOOD SUGAR DIAGNOSTIC 1 EACH STRIP IN SCH ×2 (00:25→06:21)
[2021-07-14] MEDS: POLYVINYL ALCOHOL 15 ML BOTTLE EACHEYE SCH ×2 (02:03→09:19)
[2021-07-14] MEDS: HYDROMORPHONE 1 MG/1 ML DISP.SYRIN IV PRN (02:08)
--- NOTE | 2021-07-14 03:11 | NUR ---
URINE SAMPLE OBTAINED VIA CLEAN CATCH. URINE CLEAR YELLOW, NO FOUL ODOR.
--- NOTE | 2021-07-14 05:45 | NUR ---
MS RN CLOSING NOTES: PATIENT IN BED, EYES CLOSED, RR EVEN AND UNLABORED. NO DYSPNEA OBSERVED/REPORTED. PATIENT IN NAD AND STABLE, EASILY AROUSED BY VOICE COMMAND. COMMUNICATIVE. SPO2 96%-97% ON 2L O2 VIA NC. LUNG SOUNDS WITH FINE CRACKLES TO BLL. PATIENT C/O LL ABDOMINAL PAIN THROUGHOUT THE NIGHT, ANALGESICS PROVIDED SHORT DURATION RELIEF. PATIENT STATES HE HASN'T HAD A BM IN MORE THAN 2 DAYS AND NOT PASSING GAS. PATIENT GIVEN MOM PER PRN ORDER. PATIENT VOIDING TO URNIAL WITHOUT COMPLICATION. SAFETY PRECAUTIONS IN PLACE. BED IN LOW, LOCKED POSITION, SIDE RAILS UP X2, HOB ELEVATED TO SEMI-GO'S POSITION. PATIENT DEMONSTRATES ABILITY TO USE CALL LIGHT AND VERBALIZE NEEDS EFFECTIVELY. CALL LIGHT AND FREQUENTLY USED ITEMS WITHIN REACH.
[2021-07-14] MEDS: INSULIN REGULAR, HUMAN 100 UNIT/ML 3 ML VIAL SQ PRN (06:24)
[2021-07-14] MEDS: PANTOPRAZOLE 40 MG TABLET.DR PO SCH (06:34)
[2021-07-14 06:39] LABS: ALBUMIN 1.8 g/dL (3.4-5.0); BILIRUBIN,TOTAL 0.6 mg/dL (0.2-1.0); CALCIUM, SERUM 8.1 mg/dL (8.5-10.1); CREATININE 1.1 mg/dL (0.6-1.3); POTASSIUM 3.5 mmol/L (3.5-5.1); TOTAL PROTEIN, SERUM 5.1 g/dL (6.4-8.2)
[2021-07-14 06:51] LABS: THYROID STIMULATING HORMONE 2.065 uIU/mL (0.358-3.74); URIC ACID 4.7 mg/dL (2.6-7.2)
--- NOTE | 2021-07-14 07:31 | NUR ---
MS RN OPENING NOTES:PT IN BED, AWAKE INTERACTIVE. PT ON RA, SPO2 96% . DENIES PAIN PRESENTLY SAFETY PRECAUTIONS IN PLACE. BED IN LOW, LOCKED POSITION, SIDE RAILS UP X2, HOB ELEVATED TO SEMI-GO'S POSITION. PATIENT DEMONSTRATES ABILITY TO USE CALL LIGHT AND VERBALIZE NEEDS EFFECTIVELY. CALL LIGHT AND FREQUENTLY USED ITEMS WITHIN REACH. MONITOR / ASSIST
[2021-07-14 08:45] VITALS: BP 116/75
[2021-07-14 09:00] VITALS: BP 116/75
[2021-07-14] MEDS: LISINOPRIL (10MG) 10 MG TABLET PO SCH (09:00)
[2021-07-14] MEDS: METFORMIN 500 MG TABLET PO SCH (09:00)
[2021-07-14] MEDS: LEVOFLOXACIN 500 MG /D5W 100ML 500 MG in PREMIX 1 EA IV SCH (09:02)
[2021-07-14] MEDS: INSULIN GLARGINE, 100 UNIT/ML CARTRIDGE SQ SCH (09:16)
[2021-07-14] MEDS ORDERED: LEVO500T90 PO (09:20)
[2021-07-14] MEDS: CYANOCOBALAMIN 500 MCG TABLET PO SCH (09:21)
--- NOTE | 2021-07-14 10:44 | NUR ---
RN DC NOTE- PT DC INTO CARE OF FAMILY AT THIS TIME. PT VS STABLE, AOX4, CALM INTERACTIVE. ID WRISTBAND REMOVED, HEP LOCK IV DC'D, TOLERATED WELL. DC INSTRUCTIONS GIVEN AND UNDERSTOOD. PT DC IN WCR TO DOWNSTAIRS LOBBY AND ASSISTED TO WIFES CAR BY THIS RN.
[2021-07-15] MEDS ORDERED: LEVOFLOXACIN (250MG) 250 MG TABLET PO SCH (09:00)
== END 2021-07-14 10:15 | disposition home or self-care (01) | DRG 438 ==
LOC: ER 01:06 → TRANSITION 04:35 → TELE 05:20 → ICU 18:06 → TELE 07-09 16:33 → MED 07-09 21:49
PROVIDERS: ADMIT Hospitalist; ATTEND Internal Medicine
DX: K85.90 Acute pancreatitis without necrosis or infection, unspecified (principal); N17.0 Acute kidney failure with tubular necrosis; J96.01 Acute respiratory failure with hypoxia; D68.9 Coagulation defect, unspecified; E87.1 Hypo-osmolality and hyponatremia; E87.2 Acidosis; I10 Essential (primary) hypertension; Z95.2 Presence of prosthetic heart valve; E78.00 Pure hypercholesterolemia, unspecified; Z79.84 Long term (current) use of oral hypoglycemic drugs; E78.5 Hyperlipidemia, unspecified; K21.9 Gastro-esophageal reflux disease without esophagitis; Z20.822 Contact with and (suspected) exposure to COVID-19; Z79.4 Long term (current) use of insulin; Z87.891 Personal history of nicotine dependence; E87.5 Hyperkalemia; I71.9 Aortic aneurysm of unspecified site, without rupture; K52.9 Noninfective gastroenteritis and colitis, unspecified; K80.80 Other cholelithiasis without obstruction; E11.65 Type 2 diabetes mellitus with hyperglycemia; D72.829 Elevated white blood cell count, unspecified; K76.0 Fatty (change of) liver, not elsewhere classified
CPT/HCPCS: 36415; 71045-TC; 76705-TC; 78226; 80048-TC; 80053-TC; 80076-TC; 81001; 82570-TC; 82947-TC; 82962-TC; 83605-TC; 83690-TC; 83735-TC; 84100-TC; 84300-TC; 84443-TC; 84478-TC; 84550-TC; 85025-TC; 85610-TC; 86140-TC; 87040-TC; 87081-TC; 93307-TC; 97116-TC; 97530-TC; A4216; A9537; A9563; C9113; C9803; G0378; J0610; J0744; J1170; J1650; J1815; J1940; J1956; J2405; J3475; J3490; J7030; J7042; J7050; J7060; J7120